=== PATIENT | male | born 1985 | race Hispanic/Latino ===

== ENCOUNTER 2025-01-23 23:22 | Inpatient (IN) | payer OTHER ==
[2025-01-24 00:10] LABS: #Basophils 0.05 10x3/uL (0.0-0.2); #Eosinophils Less than 0.03 10x3/uL (0.0-0.7); #Monocytes 0.82 10x3/uL (0.11-0.59); #Neutrophils 11.19 10x3/uL (1.40-6.50); %Basophils 0.4 % (0.0-1.0); %Eosinophils 0.0 % (0.0-10.0); %Lymphocytes 11.9 % (21.0-51.0); %Monocytes 6.0 % (0.0-10.0); %Neutrophils 81.3 % (42.0-75.0); Hematocrit 34.6 % (42.0-52.0); Hemoglobin 11.7 g/dL (14.0-18.0); Mean Corpuscular Hemoglobin 29.3 pg (27.0-31.0); Mean Corpuscular Volume 86.5 fL (78.0-98.0); Platelet Count 261 10x3/uL (130-400); Red Blood Cell (RBC) Count 4.00 mill/uL (4.70-6.10); White Blood Cell (WBC) Count 13.74 10x3/uL (4.8-10.8)
[2025-01-24 00:25] LABS: ALT (SGPT) 19 U/L (Less than 45); AST (SGOT) 33 U/L (11-34); Albumin 3.8 g/dL (3.1-4.5); Alkaline Phosphatase 55 U/L (40-110); Anion Gap 17 mmol/L (10-20); BUN (Urea Nitrogen) 13 mg/dL (8.9-20.6); Bilirubin, Total 0.9 mg/dL (0.3-1.2); Calc. Creatinine Clearance 0 mL/min (70-130); Calcium 8.3 mg/dL (7.8-10.44); Carbon Dioxide 19 mmol/L (22-29); Chloride 107 mmol/L (98-107); Globulin 2.8 g/dL (2.4-3.5); Glucose 99 mg/dL (70-105); Magnesium 2.0 mg/dL (1.6-2.6); Potassium 4.1 mmol/L (3.5-5.1); Sodium 139 mmol/L (136-145)
[2025-01-24] MEDS ORDERED: Dextrose 50% Abboject 50 ML SYRINGE SLOW IVP PRN (02:44)
[2025-01-24] MEDS ORDERED: Glucagon 1 MG/ML KIT IM PRN (02:44)
[2025-01-24] MEDS ORDERED: Acetaminophen 325 MG TAB PO PRN (02:52)
[2025-01-24] MEDS ORDERED: hydrALAZINE 20 MG/ML VIAL SLOW IVP PRN (02:52)
[2025-01-24] MEDS ORDERED: Rib Fracture Protocol PO SCH (03:00)
[2025-01-24 03:36] LABS: #Basophils 0.05 10x3/uL (0.0-0.2); #Eosinophils Less than 0.03 10x3/uL (0.0-0.7); #Monocytes 0.80 10x3/uL (0.11-0.59); #Neutrophils 10.51 10x3/uL (1.40-6.50); %Basophils 0.4 % (0.0-1.0); %Eosinophils 0.0 % (0.0-10.0); %Lymphocytes 11.4 % (21.0-51.0); %Monocytes 6.2 % (0.0-10.0); %Neutrophils 81.7 % (42.0-75.0); Hematocrit 33.7 % (42.0-52.0); Hemoglobin 11.8 g/dL (14.0-18.0); Mean Corpuscular Hemoglobin 29.7 pg (27.0-31.0); Mean Corpuscular Volume 84.9 fL (78.0-98.0); Platelet Count 220 10x3/uL (130-400); Red Blood Cell (RBC) Count 3.97 mill/uL (4.70-6.10); White Blood Cell (WBC) Count 12.87 10x3/uL (4.8-10.8)
[2025-01-24 03:52] LABS: Anion Gap 18 mmol/L (10-20); BUN (Urea Nitrogen) 12 mg/dL (8.9-20.6); Calc. Creatinine Clearance 0 mL/min (70-130); Calcium 8.4 mg/dL (7.8-10.44); Carbon Dioxide 15 mmol/L (22-29); Chloride 107 mmol/L (98-107); Glucose 97 mg/dL (70-105); Potassium 4.4 mmol/L (3.5-5.1); Sodium 136 mmol/L (136-145)
[2025-01-24 03:58] VITALS: BMI 22.6
[2025-01-24] MEDS ORDERED: Cyclobenzaprine 10 MG TAB PO PRN (05:45)
[2025-01-24] MEDS: Ibuprofen 800 MG TAB PO SCH (06:11)
[2025-01-24] MEDS: Acetaminophen 500 MG TAB PO SCH (06:13)
[2025-01-24] MEDS: Gabapentin 300 MG CAP PO SCH (09:21)
[2025-01-24] MEDS: Senokot S 8.6-50 MG TAB PO SCH (09:22)
[2025-01-24 10:14] LABS: Hematocrit 37.8 % (42.0-52.0); Hemoglobin 12.6 g/dL (14.0-18.0)
[2025-01-24] MEDS ORDERED: Iopamidol-370 76% 500 ML MDV (1 ML CHARGE) ONE (10:22)
[2025-01-24] MEDS: Enoxaparin 40 MG (0.4 mL) SYRINGE SC SCH (21:36)
[2025-01-25 05:36] LABS: #Basophils 0.07 10x3/uL (0.0-0.2); #Eosinophils 0.43 10x3/uL (0.0-0.7); #Monocytes 0.73 10x3/uL (0.11-0.59); #Neutrophils 5.27 10x3/uL (1.40-6.50); %Basophils 0.8 % (0.0-1.0); %Eosinophils 5.2 % (0.0-10.0); %Lymphocytes 21.0 % (21.0-51.0); %Monocytes 8.8 % (0.0-10.0); %Neutrophils 64.0 % (42.0-75.0); Hematocrit 36.4 % (42.0-52.0); Hemoglobin 12.4 g/dL (14.0-18.0); Mean Corpuscular Hemoglobin 29.0 pg (27.0-31.0); Mean Corpuscular Volume 85.0 fL (78.0-98.0); Platelet Count 218 10x3/uL (130-400); Red Blood Cell (RBC) Count 4.28 mill/uL (4.70-6.10); White Blood Cell (WBC) Count 8.25 10x3/uL (4.8-10.8)
[2025-01-25] MEDS: Ondansetron PF 4 MG/2 ML Vial IVP PRN (09:11)
[2025-01-26 06:09] LABS: #Basophils 0.08 10x3/uL (0.0-0.2); #Eosinophils 0.57 10x3/uL (0.0-0.7); #Monocytes 0.57 10x3/uL (0.11-0.59); #Neutrophils 3.68 10x3/uL (1.40-6.50); %Basophils 1.2 % (0.0-1.0); %Eosinophils 8.4 % (0.0-10.0); %Lymphocytes 27.4 % (21.0-51.0); %Monocytes 8.4 % (0.0-10.0); %Neutrophils 54.5 % (42.0-75.0); Hematocrit 37.8 % (42.0-52.0); Hemoglobin 12.4 g/dL (14.0-18.0); Mean Corpuscular Hemoglobin 28.8 pg (27.0-31.0); Mean Corpuscular Volume 87.7 fL (78.0-98.0); Platelet Count 240 10x3/uL (130-400); Red Blood Cell (RBC) Count 4.31 mill/uL (4.70-6.10); White Blood Cell (WBC) Count 6.76 10x3/uL (4.8-10.8)
[2025-01-27 07:47] VITALS: TEMP 97.8
[2025-01-27 12:22] VITALS: BP 150/85
== END 2025-01-27 14:29 | DRG 199 ==
LOC: EEVIPCON 23:22 → ERS 23:22 → SURG A 01-24 02:57
PROVIDERS: ADMIT Surgery; ATTEND Surgery
PROC: 0W9B30Z Drainage of Left Pleural Cavity with Drainage Device, Percutaneous Approach (ICD-10-PCS; principal; 2025-01-24)
PROC: 30233N1 Transfusion of Nonautologous Red Blood Cells into Peripheral Vein, Percutaneous Approach (ICD-10-PCS; 2025-01-24)
DX: S27.2XXA Traumatic hemopneumothorax, initial encounter (principal); J93.0 Spontaneous tension pneumothorax; S22.42XA Multiple fractures of ribs, left side, initial encounter for closed fracture; D64.9 Anemia, unspecified; W01.0XXA Fall on same level from slipping, tripping and stumbling without subsequent striking against object, initial encounter; Y92.149 Unspecified place in prison as the place of occurrence of the external cause
CPT/HCPCS: 32554; 36415; 36430; 71045; 71275; 80048; 80053; 83735; 85025; 85610; 86850; 86900; 86901; 93005; 94640; 94760; 96365; 96374; 96375; 96376; 99152; 99153; G0390; J0690; J1650; J2060; J2405; J3010; J7620; P9016; Q9967